=== PATIENT | female | born 1945 | race Caucasian/White ===

== ENCOUNTER 2019-12-28 06:00 | Outpatient (RCR) | payer MEDICARE, OTHER, SELFPAY | END 2020-01-23 23:59 | disposition home or self-care (01) | LOC: MPT 06:00 | PROVIDERS: Family Provider Family Medicine; PCP Family Medicine; Referring Provider Physician Assistant; Visit Provider Physician Assistant | DX: M25.511 Pain in right shoulder (principal) | CPT/HCPCS: 97110; 97140; 97161 ==

== ENCOUNTER 2020-02-03 13:57 | Outpatient (RCR) | payer MEDICARE, OTHER, SELFPAY | END 2020-02-23 23:59 | disposition home or self-care (01) | LOC: MPT 13:57 | PROVIDERS: Family Provider Family Medicine; PCP Family Medicine; Referring Provider Physician Assistant; Visit Provider Physician Assistant | DX: M25.511 Pain in right shoulder (principal); S42.201D Unspecified fracture of upper end of right humerus, subsequent encounter for fracture with routine healing; X58.XXXD Exposure to other specified factors, subsequent encounter | CPT/HCPCS: 97110; 97140 ==

== ENCOUNTER 2024-07-06 06:00 | Outpatient (RCR) | payer MEDICARE, OTHER, SELFPAY | END 2024-07-25 23:59 | disposition home or self-care (01) | LOC: MST 06:00 | PROVIDERS: Visit Provider Nurse Practitioner Family | DX: I63.9 Cerebral infarction, unspecified (principal); R47.9 Unspecified speech disturbances | CPT/HCPCS: 92507; 92523 ==

== ENCOUNTER 2024-07-26 06:30 | Outpatient (RCR) | payer MEDICARE, OTHER, SELFPAY | END 2024-08-24 23:59 | disposition home or self-care (01) | LOC: MST 06:30 | PROVIDERS: Visit Provider Nurse Practitioner Family | DX: I63.9 Cerebral infarction, unspecified (principal); F80.9 Developmental disorder of speech and language, unspecified | CPT/HCPCS: 92507 ==